=== PATIENT | male | born 1980 | race Caucasian/White ===

== ENCOUNTER 2019-03-22 01:47 | Emergency (ER) | payer OTHER ==
[~2019-03-22] VITALS: Ht 170.2 cm; Wt 79.5 kg
[2019-03-22] MEDS ORDERED: ADDE10CA3 PO (01:54)
[2019-03-22] MEDS ORDERED: MULT1TAB8 PO (02:11)
[2019-03-22] MEDS ORDERED: ACET-683 PO (02:14)
[2019-03-22] MEDS ORDERED: ASPIRIN 81 MG CHEW TABLET PO ONE (02:30)
[2019-03-22] MEDS: NITROGLYCERIN 0.4 MG SUBL TABLET SL PRN ×3 (02:41→03:16)
[2019-03-22 02:43] LABS: BASO # 0.1 10^3/uL (0.0-0.2); BASO % 0.5 % (0.0-1.0); EOS # 0.1 10^3/uL (0.0-0.50); EOS % 0.5 % (0.0-3.0); HEMATOCRIT 45.3 % (42.0-52.0); HEMOGLOBIN 15.9 g/dl (13.5-17.5); LYMPH # 1.5 10^3/uL (1.5-4.5); LYMPH % 15.8 % (24.0-44.0); MEAN CORPUSCULAR HEMOGLOBIN 31.2 pg (27.0-33.0); MEAN CORPUSCULAR HGB CONC 35.1 g/dl (32.0-36.5); MEAN CORPUSCULAR VOLUME 88.8 fl (80.0-96.0); MONO # 0.6 10^3/uL (0.0-0.8); NEUTROPHILS % 76.8 % (36.0-66.0); PLATELET COUNT, AUTOMATED 226 10^3/uL (150-450); WHITE BLOOD COUNT 9.2 10^3/uL (4.0-10.0)
[2019-03-22 02:54] LABS: INR 0.94; PROTHROMBIN TIME 12.7 SECONDS (12.1-14.4)
[2019-03-22 02:55] LABS: PARTIAL THROMBOPLASTIN TIME 26.5 SECONDS (25.4-37.6)
[2019-03-22 02:58] LABS: D-DIMER QUANT 400.99 ng/ml (<500)
[2019-03-22 03:07] LABS: ALT/SGPT 45 U/L (12-78); BLOOD UREA NITROGEN 13 MG/DL (7-18); CALCIUM LEVEL 9.3 MG/DL (8.5-10.1); CARBON DIOXIDE LEVEL 27 MEQ/L (21-32); CHLORIDE LEVEL 102 MEQ/L (98-107); CK-MB VALUE MASS 2.1 NG/ML (<3.6); CPK CREATINE PHOSPHOKINASE 237 U/L (39-308); CREATININE FOR GFR 1.15 MG/DL (0.70-1.30); GLOMERULAR FILTRATION RATE > 60.0 (>60); GLUCOSE, FASTING 93 MG/DL (70-100); SODIUM LEVEL 137 MEQ/L (136-145)
[2019-03-22 03:08] LABS: ALBUMIN 4.1 GM/DL (3.2-5.2); BILIRUBIN,DIRECT 0.1 MG/DL (0.0-0.2); BILIRUBIN,TOTAL 0.3 MG/DL (0.2-1.0); LIPASE 122 U/L (73-393); MB/CK RELATIVE INDEX 0.89 (< OR =4); TOTAL PROTEIN 7.6 GM/DL (6.4-8.2); TROPONIN I < 0.02 NG/ML (< 0.10)
[2019-03-22 08:19] LABS: CK-MB VALUE MASS 1.9 NG/ML (<3.6); CPK CREATINE PHOSPHOKINASE 193 U/L (39-308); MB/CK RELATIVE INDEX 0.98 (< OR =4); TROPONIN I < 0.02 NG/ML (< 0.10)
[2019-03-22 09:01] VITALS: BP 130/82
--- NOTE | 2019-03-22 09:23 | REP ---
CHEST, SINGLE VIEW: There is no evidence of acute infiltrate. No pleural effusion is seen. The heart is normal in size. The mediastinal silhouette is unremarkable. The visualized osseous structures are intact. IMPRESSION: No acute pulmonary disease. Electronically Signed by Aditya Krishna MD 03/22/2019 04:36 P
--- NOTE | 2019-03-22 16:20 | ECGEPIP ---
[facility] - ED Test Date: 2019-03-22 Pat Name: REDD WYMAN Department: Room: - Gender: Male [employer]: TC : 1980 Requested By: Edgar Alexander Order Number: [id number] Reading MD: Lilia Pisano Measurements Intervals [place] Rate: 79 P: 23 WA: 164 QRS: QRSD: 86 T: 16 QT: 346 QTc: 398 Interpretive Statements SINUS RHYTHM PROBABLE EARLY REPOLARIZATION NO PRIOR FOR COMPARISON Electronically Signed on 03-22-2019 16:20:25 EDT by Lilai Pisano
== END 2019-03-22 09:05 | disposition home or self-care (01) ==
LOC: M ED 01:47
DX: R07.9 Chest pain, unspecified (principal); K21.9 Gastro-esophageal reflux disease without esophagitis; Z72.0 Tobacco use; Z79.899 Other long term (current) drug therapy

== ENCOUNTER → 2021-07-09 | Outpatient (REF) | payer OTHER ==
[~2021-07-09] MED LIST: ACET-683 PO; ADDE10CA3 PO; MULT1TAB8 PO
== END ==
LOC: M SMT 14:18
PROVIDERS: ATTEND Urology
DX: Z30.2 Encounter for sterilization (principal)

== ENCOUNTER 2022-07-23 15:19 | Emergency (ER) | payer OTHER ==
[~2022-07-23] VITALS: Ht 170.2 cm; Wt 87.4 kg
[2022-07-23 16:34] LABS: BASO % 0.7 % (0.0-1.0); EOS # 0.1 10^3/uL (0.0-0.5); EOS % 0.8 % (0.0-3.0); HEMATOCRIT 47.9 % (42.0-52.0); HEMOGLOBIN 16.4 g/dl (13.5-17.5); LYMPH # 1.6 10^3/uL (1.5-5.0); MEAN CORPUSCULAR HEMOGLOBIN 30.6 pg (27.0-33.0); MEAN CORPUSCULAR HGB CONC 34.2 g/dl (32.0-36.5); MEAN CORPUSCULAR VOLUME 89.4 fl (80.0-96.0); MONO # 0.4 10^3/uL (0.0-0.8); MONO % 5.9 % (2.0-8.0); NEUTROPHILS % 65.3 % (36.0-66.0); PLATELET COUNT, AUTOMATED 210 10^3/uL (150-450); RED BLOOD COUNT 5.36 10^6/uL (4.30-6.10); WHITE BLOOD COUNT 6.1 10^3/uL (4.0-10.0)
[2022-07-23 16:51] LABS: INR 0.95; PROTHROMBIN TIME 12.9 SECONDS (12.5-14.5)
[2022-07-23 16:52] LABS: PARTIAL THROMBOPLASTIN TIME 27.5 SECONDS (24.8-34.2)
[2022-07-23 17:13] LABS: CPK CREATINE PHOSPHOKINASE 77 U/L (39-308)
[2022-07-23 17:21] LABS: ALBUMIN 3.7 GM/DL (3.2-5.2); ALT/SGPT 54 U/L (12-78); BILIRUBIN,DIRECT 0.1 MG/DL (0.0-0.2); BILIRUBIN,TOTAL 0.4 MG/DL (0.2-1.0); BLOOD UREA NITROGEN 12 MG/DL (7-18); CALCIUM LEVEL 9.4 MG/DL (8.5-10.1); CARBON DIOXIDE LEVEL 28 MEQ/L (21-32); CHLORIDE LEVEL 105 MEQ/L (98-107); CREATININE FOR GFR 1.07 MG/DL (0.70-1.30); FREE T4 0.78 NG/DL (0.76-1.46); GLOMERULAR FILTRATION RATE > 60.0 (>60); GLUCOSE, FASTING 97 MG/DL (70-100); LIPASE 110 U/L (73-393); NT-PRO BNP 24 PG/ML (<125); POTASSIUM SERUM 4.1 MEQ/L (3.5-5.1); SODIUM LEVEL 138 MEQ/L (136-145); TOTAL PROTEIN 7.1 GM/DL (6.4-8.2)
[2022-07-23] MEDS ORDERED: LORazepam 1 MG TAB PO STA (17:51)
[2022-07-23 18:48] LABS: CPK CREATINE PHOSPHOKINASE 81 U/L (39-308)
[2022-07-23] MEDS ORDERED: HYDR-3363 PO (19:27)
[2022-07-23 19:38] VITALS: BP 148/70
== END 2022-07-23 19:36 | disposition home or self-care (01) ==
LOC: M ED 15:19
DX: F41.0 Panic disorder [episodic paroxysmal anxiety] (principal); R94.31 Abnormal electrocardiogram [ECG] [EKG]; Z87.442 Personal history of urinary calculi; Z87.891 Personal history of nicotine dependence; Z79.899 Other long term (current) drug therapy

== ENCOUNTER 2024-08-23 06:16 | Day surgery (SDC) | payer OTHER ==
[~2024-08-23] VITALS: Ht 170.2 cm; Wt 85.1 kg
[~2024-08-23 06:16] MED LIST changes: +HYDR-3363 PO
[2024-08-23] MEDS ORDERED: dexAMETHasone 10MG/1ML VIAL PRES.FREE PN ONE (07:00)
[2024-08-23] MEDS ORDERED: ACETAMINOPHEN 1000MG/100ML IV BAG As Ordered ONE (07:00)
[2024-08-23] MEDS ORDERED: ROPIvacaine 0.5% 30ML VIAL PN ONE (07:00)
[2024-08-23] MEDS ORDERED: dexmedeTOMIDine (4MCG/ML)200MCG/50ML BTL (PRECEDEX) As Ordered ONE (07:01)
[2024-08-23] MEDS ORDERED: propofoL 200 MG/20 ML VIAL As Ordered ONE (07:03)
[2024-08-23] MEDS ORDERED: KETOROLAC 60MG 2ML VIAL As Ordered ONE (07:05)
[2024-08-23] MEDS ORDERED: ONDANSETRON 4MG 2ML VIAL As Ordered ONE (07:05)
[2024-08-23] MEDS ORDERED: SUGAMMADEX SODIUM 500 MG/5 ML VIAL (BRIDION) As Ordered ONE (07:05)
[2024-08-23] MEDS ORDERED: ROCURONIUM BROMIDE 50MG/5ML VIAL As Ordered ONE (07:05)
[2024-08-23] MEDS ORDERED: LIDOCAINE 2% 100MG/5ML SDV (FOR ANES.) As Ordered ONE (07:05)
[2024-08-23] MEDS ORDERED: MIDAZOLAM INJ 2MG/2ML VIAL As Ordered ONE (07:11)
[2024-08-23] MEDS ORDERED: HYDROmorphone HCL 2MG/ML 1ML VIAL As Ordered ONE (07:11)
[2024-08-23] MEDS ORDERED: fentaNYL 100 MCG/2 ML INJECTION As Ordered ONE (07:11)
[2024-08-23] MEDS: LIDOCAINE 1% SDV 30ML VIAL As Ordered ONE (07:17)
[2024-08-23] MEDS: fentaNYL 100 MCG/2 ML INJECTION IV PRN (07:26)
[2024-08-23] MEDS: MIDAZOLAM INJ 2MG/2ML VIAL IV PRN (07:29)
[2024-08-23] MEDS: ceFAZolin SOD 2 GM in IV 1 EA IV ONE (07:55)
[2024-08-23] MEDS: TRANEXAMIC ACID 100 MG/ML 10ML VIAL As Ordered ONE (08:00)
[2024-08-23] MEDS ORDERED: PHENYLephrine 500MCG 5ML (100MCG/ML) SYRINGE As Ordered ONE (08:08)
[2024-08-23] MEDS ORDERED: ePHEDrine SULFATE 25 MG/5 ML(5MG/ML) SYRINGE As Ordered ONE (08:24)
[2024-08-23] MEDS: EPINEPHrine INJ 1 MG/ML 1ML AMP As Ordered ONE (08:40)
[2024-08-23] MEDS ORDERED: PHENYLEPHRINE 10MG/ML 1ML VIAL As Ordered ONE (08:50)
[2024-08-23] MEDS: LIDOCAINE W/EPINEPHRINE 1% 20ML VIAL As Ordered ONE (09:28)
[2024-08-23] MEDS: VANCOMYCIN 1000MG/20ML VIAL As Ordered ONE (09:48)
[2024-08-23] MEDS ORDERED: fentaNYL 100 MCG/2 ML INJECTION IV PRN (10:00)
[2024-08-23] MEDS: ONDANSETRON 4MG 2ML VIAL IV PRN (11:00)
[2024-08-23] MEDS: oxyCODONE 5MG TAB PO PRN (11:01)
[2024-08-23 12:05] VITALS: BP 120/64; TEMP 97; O2SAT 94
== END 2024-08-23 12:05 | disposition home or self-care (01) ==
LOC: M SDC 06:16
PROVIDERS: ATTEND Orthopaedic Surgery
DX: S43.431A Superior glenoid labrum lesion of right shoulder, initial encounter (principal); M75.21 Bicipital tendinitis, right shoulder; M94.211 Chondromalacia, right shoulder; M75.51 Bursitis of right shoulder; X50.9XXA Other and unspecified overexertion or strenuous movements or postures, initial encounter; Y93.89 Activity, other specified; Y92.9 Unspecified place or not applicable; I10 Essential (primary) hypertension; G47.30 Sleep apnea, unspecified; Z87.891 Personal history of nicotine dependence
CPT/HCPCS: 23430; 29823; C1713; J0131; J0171; J0690; J1100; J1171; J1885; J2250; J2371; J2405; J3010; J3370